=== PATIENT | female | born 1985 | race American Indian/Alaskan Native ===

== ENCOUNTER 2018-10-05 00:10 | Emergency (ER) | payer OTHER ==
[2018-10-05] MEDS ORDERED: TYLENOL ONE (00:26)
[2018-10-05] MEDS ORDERED: NACL 0.9% 500 ML 500 ML IV ONE (00:31)
[2018-10-05] MEDS ORDERED: TYLENOL PO ONE (00:33)
[2018-10-05] MEDS ORDERED: TAMIFLU PO ONE (00:48)
[2018-10-05 01:03] LABS: Bacteria,Urine 1+ /HPF (Negative); Bilirubin,Urine NEG (Negative); Blood,Urine SM (Negative); Color,Urine Yellow (Yellow); Mucus,Urine FEW /HPF
[2018-10-05 01:07] VITALS: BP 136/87
--- NOTE | 2018-10-05 01:14 | Emergency Department Report ---
ED Fever HPI - General Chief Complaint: Fever Stated Complaint: COLD SXS Time Seen by Provider: 10/05/18 00:47 - History of Present Illness Initial Comments: Ms. Davies is a healthy 32 yo female who presents with 3 days of fever, headache, sore throat, productive cough and body aches since . REcently traveled from [place]. 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 Did not receive flu vaccine. No hx of tobacco use. Cough productive with yellow phlegm. Timing/Duration: getting worse, other (3 days) Fever Severity/Quality: subjective Fever Therapy [employer]: cold remedies, Tylenol Associated Symptoms: cough, headache, muscle aches, sore throat ED Review of Systems ROS: Stated complaint: COLD SXS Other details as noted in HPI Comment: All other systems reviewed and negative Constitutional: chills, fever, malaise ENT: throat pain Respiratory: cough Neurological: headache ED Past Medical Hx - Past Medical History Previous Medical History?: No - Surgical History Past Surgical History?: Yes Additional Surgical History: Laser cervix - Social History Smoking Status: Never Smoker Substance Use Type: None - Medications Home Medications: Home Medications Medication Instructions Recorded Confirmed Last Taken Type Oseltamivir [Tamiflu] 75 mg PO BID 5 Days #10 cap 10/05/18 Unknown Rx ED Physical Exam - General Limitations: No Limitations General appearance: alert, in no apparent distress - Head Head exam: Present: atraumatic, normocephalic - Eye Eye exam: Present: normal appearance - ENT ENT exam: Present: mucous membranes moist - Neck Neck exam: Present: normal inspection, full ROM - Respiratory Respiratory exam: Present: normal lung sounds bilaterally, wheezes, rales, rhonchi. Absent: respiratory distress - Cardiovascular Cardiovascular Exam: Present: normal rhythm, tachycardia, normal heart sounds. Absent: systolic murmur, diastolic murmur, rubs, gallop - GI/Abdominal GI/Abdominal exam: Present: soft, normal bowel sounds. Absent: distended, tenderness, guarding, rebound - Extremities Exam Extremities exam: Present: normal inspection - Back Exam Back exam: Present: normal inspection - Neurological Exam Neurological exam: Present: alert, oriented X3 - Psychiatric Psychiatric exam: Present: normal affect, normal mood - Skin Skin exam: Present: warm, dry, intact, normal color. Absent: rash ED Course Vital Signs 10/05/18 10/05/18 10/05/18 00:18 00:20 00:49 Temperature 103.1 F H 103.1 F H Pulse Rate 124 H 121 H Respiratory 18 18 Rate Blood Pressure 141/91 141/91 Blood Pressure [Left] O2 Sat by Pulse 99 99 100 Oximetry 10/05/18 10/05/18 10/05/18 00:59 01:00 02:05 Temperature 100.5 F H Pulse Rate 115 H Respiratory 20 15 Rate Blood Pressure Blood Pressure 136/87 [Left] O2 Sat by Pulse 98 100 Oximetry ED Medical Decision Making - Lab Data Result diagrams: 10/05/18 00:55 10/05/18 00:55 Laboratory Results - last 24 hr 10/05/18 10/05/18 10/05/18 00:41 00:55 00:55 WBC 15.1 H RBC 4.28 Hgb 11.4 Hct 34.4 MCV 81 MCH 27 L MCHC 33 RDW 16.2 H Plt Count 121 L Lymph % (Auto) Glueline Worker [place] % (Auto) Glueline Worker Eos % (Auto) Glueline Worker Baso % (Auto) Glueline Worker Lymph # Glueline Worker Greene # Glueline Worker Eos # Glueline Worker Baso # Glueline Worker Seg Neutrophils % Glueline Worker Seg Neutrophils # Glueline Worker PT 13.2 INR 0.95 VBG pH Sodium Potassium Chloride Carbon Dioxide Anion Gap BUN Creatinine Estimated GFR BUN/Creatinine Ratio Glucose Lactic Acid Calcium Total Bilirubin AST ALT Alkaline Phosphatase Total Protein Albumin Albumin/Globulin Ratio HCG, Qual Urine Color Yellow Urine Turbidity Slightly-cloudy Urine pH 6.0 Ur Specific [place] 1.032 H Urine Protein 100 mg/dl Urine Glucose (UA) Neg Urine Ketones Tr Urine Blood Sm Urine Nitrite Neg Urine Bilirubin Neg Urine Urobilinogen 2.0 Ur Leukocyte Esterase Neg Urine WBC (Auto) 4.0 Urine RBC (Auto) 12.0 U Epithel Cells (Auto) 7.0 Urine Bacteria (Auto) 1+ Urine Mucus Few 10/05/18 10/05/18 10/05/18 00:55 00:55 00:55 WBC RBC Hgb Hct MCV MCH MCHC RDW Plt Count Lymph % (Auto) [place] % (Auto) Eos % (Auto) Baso % (Auto) Lymph # [place] # Eos # Baso # Seg Neutrophils % Seg Neutrophils # PT INR VBG pH Sodium 137 Potassium 3.7 Chloride 101.9 Carbon Dioxide 21 L Anion Gap 18 BUN 8 Creatinine 1.1 Estimated GFR > 60 BUN/Creatinine Ratio 7 Glucose 153 H Lactic Acid 1.50 Calcium 9.1 Total Bilirubin 0.30 AST 25 ALT 11 Alkaline Phosphatase 93 Total Protein 7.7 Albumin 3.6 L Albumin/Globulin Ratio 0.9 HCG, Qual Negative Urine Color Urine Turbidity Urine pH Ur Specific [place] Urine Protein Urine Glucose (UA) Urine Ketones Urine Blood Urine Nitrite Urine Bilirubin Urine Urobilinogen Ur Leukocyte Esterase Urine WBC (Auto) Urine RBC (Auto) U Epithel Cells (Auto) Urine Bacteria (Auto) Urine Mucus 10/05/18 00:55 WBC RBC Hgb Hct MCV MCH MCHC RDW Plt Count Lymph % (Auto) [place] % (Auto) Eos % (Auto) Baso % (Auto) Lymph # [place] # Eos # Baso # Seg Neutrophils % Seg Neutrophils # PT INR VBG pH 7.456 H Sodium Potassium Chloride Carbon Dioxide Anion Gap BUN Creatinine Estimated GFR BUN/Creatinine Ratio Glucose Lactic Acid Calcium Total Bilirubin AST ALT Alkaline Phosphatase Total Protein Albumin Albumin/Globulin Ratio HCG, Qual Urine Color Urine Turbidity Urine pH Ur Specific [place] Urine Protein Urine Glucose (UA) Urine Ketones Urine Blood Urine Nitrite Urine Bilirubin Urine Urobilinogen Ur Leukocyte Esterase Urine WBC (Auto) Urine RBC (Auto) U Epithel Cells (Auto) Urine Bacteria (Auto) Urine Mucus - EKG Data 10/05/18 01:22 EKG obtained 0055 Sinus tachycardia rate 115 beats a minute normal axis normal no ST-T signs of ischemia normal EKG with the exception of tachycardia - Medical Decision Making CLinical diagnosis: influenza, upon arrival code sepsis activated. Labs remarkable for WBC 15K, No evidence of PNA or pharyngitis. CXR WNL. BMP, lactic WNL blood cultures obtained, one dose levaquin PO given in ED. Prescribed tamiflu, low risk for bacteremia, sepsis Critical care attestation.: If time is entered above; I have spent that time in minutes in the direct care of this critically ill patient, excluding procedure time. ED Disposition Clinical Impression: Influenza, SIRS (systemic inflammatory response syndrome) Disposition: TO HOME OR SELFCARE Is pt being admited?: No Does the pt Need Aspirin: No Condition: Stable Instructions: Influenza (ED) Prescriptions: Oseltamivir [Tamiflu] 75 mg PO BID 5 Days #10 cap Referrals: SUSANA VELARDE MD [Primary Care Provider] - 3-5 Days Forms: Work/School Release Form(ED)
[2018-10-05 01:21] LABS: Hematocrit 34.4 % (30.3-42.9); Hemoglobin 11.4 gm/dl (10.1-14.3); Mean Corpuscular HGB Conc 33 % (30-34); Mean Corpuscular Volume 81 fl (79-97); Red Blood Count 4.28 M/mm3 (3.65-5.03); Red Cell Distribution Width 16.2 % (13.2-15.2)
[2018-10-05 01:36] LABS: INR 0.95 (0.87-1.13)
[2018-10-05 01:39] LABS: Albumin 3.6 g/dL (3.9-5); BUN/Creatinine Ratio 7; Blood Urea Nitrogen 8 mg/dL (7-17); Calcium 9.1 mg/dL (8.4-10.2); Hemolysis Index 162
[2018-10-05 01:40] LABS: Platelet Count 121 K/mm3 (140-440)
[2018-10-05] MEDS ORDERED: LEVAQUIN PO ONE (01:50)
[2018-10-05 02:15] LABS: Alanine Aminotransferase 11 units/L (7-56)
--- NOTE | 2018-10-05 02:21 | XRay Report ---
PROCEDURE: XR CHEST 1V AP TECHNIQUE: Chest radiograph single view. HISTORY: possible Sepsis COMPARISONS: None . FINDINGS: Heart: Normal. Mediastinum/Vessels: Normal. Lungs/Pleural space: Normal. Bony thorax: No acute osseous abnormality. Life support devices: None. IMPRESSION: No acute cardiopulmonary abnormality. This document is electronically signed by Soraida Hernandez DO., October 05 2018 02:19:46 AM ET
[2018-10-05 03:45] LABS: Anisocytosis 1+; Basophils % (Manual) 0 % (0.0-1.8); Eosinophils % (Manual) 0 % (0.0-4.3); Monocytes % (Manual) 0 % (0.0-7.3); Platelet Estimate Consistent w Auto; Total Cells Counted 100
== END 2018-10-05 02:39 | disposition home or self-care (01) ==
LOC: ED 00:10
DX: J11.1 Influenza due to unidentified influenza virus with other respiratory manifestations (principal); R65.10 Systemic inflammatory response syndrome (SIRS) of non-infectious origin without acute organ dysfunction
CPT/HCPCS: 36415; 71045; 80053; 81001; 82140; 82805; 84703; 85007; 85025; 85610; 87040; 87086; 93005; 93010; 99284; J7040